=== PATIENT | male | born 1965 | race Caucasian/White ===

== ENCOUNTER → 2021-11-05 09:20 | Outpatient (CLI) | payer OTHER, SELFPAY ==
--- NOTE | ~2021-11-05 | XR_ITS ---
EXAMINATION: XR knee LT 3V EXAM DATE: 11/05/2021 09:50 INDICATION: Left knee pain. TECHNIQUE: Three projections of the left knee. There is no prior study for comparison. FINDINGS: No evidence osteochondral defect or joint body in the left knee joint. There are no acute fractures or dislocations identified. There is no subcutaneous gas. Small to moderate-sized joint effusion. There are no radiopaque foreign bodies. . There is mild primary osteoarthritis. IMPRESSION: Small to moderate left knee joint effusion. Mild osteoarthritis. Reviewed, dictated and finalized at location A.
== END ==
PROVIDERS: PCP Nurse Practitioner Family; Visit Provider Nurse Practitioner Family
DX: M25.462 Effusion, left knee (principal); M17.12 Unilateral primary osteoarthritis, left knee
CPT/HCPCS: 73562

== ENCOUNTER 2021-12-31 08:07 | Outpatient (CLI) | payer OTHER, SELFPAY ==
--- NOTE | 2021-12-31 08:33 | ECG_ITS ---
Measurements Intervals [place] Rate: 56 P: 64 DC: 147 QRS: 40 QRSD: 100 T: 17 QT: 382 QTc: 369 Interpretive Statements SINUS BRADYCARDIA BORDERLINE ECG NO PREVIOUS ECG AVAILABLE FOR COMPARISON Electronically Signed On 12-31-2021 11:34:24 CDT by Syed Malloy M.D.
[2021-12-31 08:47] LABS: Anion Gap 9 mmol/L (8-16); Blood Urea Nitrogen 14 mg/dL (9-20); Calcium 9.1 mg/dL (8.4-10.2); Carbon Dioxide 28 mmol/L (22-30); Chloride 101 mmol/L (98-107); Estimated Glomerular Filt Rate > 60; Glucose 97 mg/dL (65-110); Potassium 4.3 mmol/L (3.4-5.0); Sodium 138 mmol/L (137-145)
== END 2021-12-31 08:08 | disposition home or self-care (01) ==
LOC: ANHLAB 08:12
PROVIDERS: PCP Nurse Practitioner Family
DX: Z01.818 Encounter for other preprocedural examination (principal); R94.31 Abnormal electrocardiogram [ECG] [EKG]
CPT/HCPCS: 36415; 80048; 93005